=== PATIENT | female | born 2000 | race African-American/Black ===

== ENCOUNTER 2021-02-25 14:53 | Emergency (ER) | payer SELFPAY ==
[~2021-02-25] VITALS: Ht 165.1 cm; Wt 73.1 kg
--- NOTE | 2021-02-25 15:02 | NUR ---
FURNITURE PAINTER: NIA IN L&D NOTIFIED OF NEED FOR HEART TONES ON PT GOING TO ROOM ER 36.
--- NOTE | 2021-02-25 15:27 | NUR ---
KRISTA GREWAL FROM L&D HERE FOR HEART TONE
--- NOTE | 2021-02-25 15:27 | NUR ---
FHT'S BY DOPPLER 160, DENIES CRAMPING OR BLEEDING, STATES FETUS ACTIVE
--- NOTE | 2021-02-25 15:43 | NUR ---
ASSUMED CARE OF PT. SHE IS HERE D/T SOB CHEST DISCOMFORT WHICH HAVE BEEN GOING ON FOR OVER MONTH PER PT. PT IS IN GOWN AND ATTACHED TO MONITOR. PA & L&D RN HAVE BEEN BEDSIDE. SLOAN MCGARRY, CALL LIGHT W/IN REACH.
[2021-02-25 16:04] LABS: BASOPHILS % (AUTO) 0 % (0-1); EOSINOPHILS % (AUTO) 1 % (1-7); LYMPHOCYTES % (AUTO) 17 % (22-44); MEAN CORPUSCULAR HEMOGLOBIN 29.5 pg (27.0-34.8); MEAN CORPUSCULAR HGB CONC 33.2 g/dL (32.4-35.8); MEAN PLATELET VOLUME 8.5 fL (7.4-10.4); MONOCYTES % (AUTO) 8 % (2-9); NEUTROPHILS % (AUTO) 74 % (42-75); PLATELET COUNT 219 x10^3/uL (130-400); RED BLOOD COUNT 3.69 x10^6/uL (3.82-5.3); RED CELL DISTRIBUTION WIDTH 13.3 % (9.6-15.2)
[2021-02-25 16:14] LABS: ALBUMIN 2.8 g/dL (3.4-5.0); ANION GAP 8 mmol/L (5-15); CALCIUM 8.5 mg/dL (8.5-10.1); CHLORIDE 105 mmol/L (98-107)
--- NOTE | 2021-02-25 16:14 | NUR ---
PT SITTING IN GURNEY, BEDSIDE. VSS, DENIES NEEDING ANYTHING. NADN CALL LIGHT W/IN REACH.
[2021-02-25 16:18] LABS: ALANINE AMINOTRANSFERASE 21 U/L (12-78); ALKALINE PHOSPHATASE 76 U/L (45-117); BILIRUBIN,TOTAL 0.2 mg/dL (0.2-1.0); CREATININE 0.55 mg/dL (0.55-1.02); TOTAL PROTEIN 6.9 g/dL (6.4-8.2)
[2021-02-25 17:28] VITALS: BP 118/72
--- NOTE | 2021-02-25 17:30 | NUR ---
PT SITTING ON GURNEY, BEDSIDE. PT REPORTS SHE HAS NOT YET GONE FOR CTA. VSS, NADN, CALL LIGHT W/IN REACH.
--- NOTE | 2021-02-25 18:15 | NUR ---
PT TO CTA
[2021-02-25] MEDS ORDERED: OMNIPAQUE 350 MG/ML, 75ML BOTTLE ONE (18:28)
--- NOTE | 2021-02-25 19:01 | NUR ---
PT IS WAITING TO SEE MD, THEN WILL DC. PT UP TO RESTROOM, STEADY GAIT. WHEN PT LEFT, REPORTED THAT WHEN I WAS AT [facility] THEY TRIED CALLING FOR PT TO BE ABLE TO GET UP AND PERSON COVERING DIDN'T COME IN. I APOLOGIZED TO PATIENT THAT NO ONE RESPONDED TO CALL LIGHT. JOSE CRUZ GREWAL GIVEN REPORT.
--- NOTE | 2021-02-25 19:07 | NUR ---
Patient/Caregiver given discharge instructions and they have confirmed that they understand the instructions. Patient ambulatory with steady gait. NAD, all questions answered appropriately, denies additional needs at this time. No personal belongings left in room after discharge.
== END 2021-02-25 19:26 | disposition home or self-care (01) ==
LOC: ED 18:35
DX: O26.893 Other specified pregnancy related conditions, third trimester (principal); R07.89 Other chest pain; R00.2 Palpitations; R06.00 Dyspnea, unspecified; Z3A.30 30 weeks gestation of pregnancy
CPT/HCPCS: 36415; 71275; 80053; 85025; 85379; 93005; 99285; Q9967